=== PATIENT | male | born 1980 | race African-American/Black ===

== ENCOUNTER 2024-06-09 20:04 | Emergency (ER) | payer SELFPAY ==
[~2024-06-09] VITALS: Ht 175.3 cm; Wt 79.0 kg
[2024-06-09 20:24] VITALS: O2SAT 70
[2024-06-09] MEDS ORDERED: EPINEPHRINE 0.1MG/ML (1:10,000) 10ML SYR ONE (21:00)
== END 2024-06-10 00:45 ==
LOC: ER 20:04
DX: I46.9 Cardiac arrest, cause unspecified (principal)
CPT/HCPCS: 99291; 92950; 31500; 36680; J3490